=== PATIENT | male | born 1980 | race Caucasian/White ===

== ENCOUNTER 2024-05-13 08:28 | Emergency (ER) | payer MEDICARE, MEDICAID ==
[~2024-05-13] VITALS: Ht 175.3 cm; Wt 74.0 kg
[2024-05-13 08:31] VITALS: BP 129/93; PULSE 64; RESP 16; TEMP 97.6; O2SAT 98
[2024-05-13] MEDS ORDERED: IBUP-1985 PO (09:10)
== END 2024-05-13 18:42 | disposition home or self-care (01) ==
LOC: ER 08:29
DX: M25.532 Pain in left wrist (principal); Z76.0 Encounter for issue of repeat prescription; Z88.8 Allergy status to other drugs, medicaments and biological substances; Z88.5 Allergy status to narcotic agent; Z79.1 Long term (current) use of non-steroidal anti-inflammatories (NSAID); V87.8XXA Person injured in other specified noncollision transport accidents involving motor vehicle (traffic), initial encounter; Y93.55 Activity, bike riding; Y92.89 Other specified places as the place of occurrence of the external cause; Y99.8 Other external cause status
CPT/HCPCS: 99282

== ENCOUNTER 2024-05-26 01:48 | Emergency (ER) | payer MEDICARE, MEDICAID ==
[~2024-05-26] VITALS: Ht 175.3 cm; Wt 77.0 kg
[~2024-05-26 01:48] MED LIST: IBUP-1985 PO
[2024-05-26] MEDS: normal saline 1000ml 1,000 ML IV ONE (02:12)
[2024-05-26] MEDS: ondansetron/PF 4mg/2ml inj IV ONE (02:33)
[2024-05-26 02:38] LABS: BASOPHILS # (AUTO) 0.1 X10'3 (0-0.2); BASOPHILS % (AUTO) 0.4 % (0-1); EOSINOPHILS # (AUTO) 0.3 X10'3 (0-0.9); EOSINOPHILS % (AUTO) 2.5 % (0-6); HEMATOCRIT 48.8 % (42.0-52.0); HEMOGLOBIN 16.2 g/dl (14.0-17.9); LYMPHOCYTES # (AUTO) 1.9 X10'3 (1.1-4.8); MEAN CORPUSCULAR HEMOGLOBIN 31.2 PG (27.0-31.0); MEAN CORPUSCULAR HGB CONC 33.1 g/dL (33.0-36.5); MEAN CORPUSCULAR VOLUME 94.2 FL (78-98); MEAN PLATELET VOLUME 9.4 FL (7.4-10.4); MONOCYTES # (AUTO) 0.8 X10'3 (0-0.9); NEUTROPHILS # (AUTO) 9.7 X10'3 (1.8-7.7); NEUTROPHILS % (AUTO) 76.1 % (42-75); PLATELET COUNT 244 X10'3 (140-440); RED BLOOD COUNT 5.18 X10'6 (4.70-6.10); RED CELL DISTRIBUTION WIDTH 13.9 % (11.5-14.5); WHITE BLOOD COUNT 12.8 X10'3 (4.5-11.0)
[2024-05-26 02:45] LABS: ALANINE AMINOTRANSFERASE 42 U/L (12-78); ALBUMIN 3.6 G/DL (3.4-5.0); ALBUMIN/GLOBULIN RATIO 1.2 (1.1-1.5); ALKALINE PHOSPHATASE 83 IU/L (46-116); ANION GAP 8 (8-16); ASPARTATE AMINO TRANSFERASE 60 U/L (10-37); BILIRUBIN,TOTAL 1.6 MG/DL (0.1-1.0); BLOOD UREA NITROGEN 20 MG/DL (7-18); BUN/CREATININE RATIO 21.1 (10.0-20.0); CALCIUM 8.6 MG/DL (8.5-10.1); CHLORIDE 101 MMOL/L (99-107); CREATININE 0.95 MG/DL (0.60-1.10); ETHANOL 11 MG/DL (<10); GLUCOSE 107 MG/DL (70-104); POTASSIUM 3.8 MMOL/L (3.5-5.1); SODIUM 138 MMOL/L (135-145); TOTAL CARBON DIOXIDE 28.7 MMOL/L (24-32); TOTAL PROTEIN 6.6 G/DL (6.4-8.2); eCRCL 98 ML/MIN; eGFR 86 ML/MIN
[2024-05-26] MEDS: thiamine 100mg tablet PO STA (03:05)
[2024-05-26 08:14] LABS: URINE AMPHETAMINE SCREEN POSITIVE (Neg); URINE BARBITUATE SCREEN NEGATIVE (Neg); URINE BENZODIAZEPINES SCREEN NEGATIVE (Neg); URINE CANNABINOID SCREEN POSITIVE (Neg); URINE COCAINE SCREEN NEGATIVE (Neg); URINE METHADONE SCREEN NEGATIVE (Neg); URINE OPIATE SCREEN NEGATIVE (Neg); URINE PHENCYCLIDINE SCREEN NEGATIVE (Neg)
[2024-05-26 09:14] VITALS: BP 122/87; PULSE 68; TEMP 97.9; O2SAT 98
[2024-05-26 10:31] LABS: BILIRUBIN,URINE NEGATIVE (Neg); CLARITY,URINE CLEAR (Clear); COLOR,URINE YELLOW (Yellow); GLUCOSE, URINE NEGATIVE (Neg); KETONES,URINE TRACE mg/dl (Neg); LEUKOCYTE ESTERASE ,URINE NEGATIVE (Neg); NITRITES, URINE NEGATIVE (Neg); OCCULT BLOOD,URINE NEGATIVE (Neg); PH,URINE 6.5 (4.8-8.0); PROTEIN,URINE NEGATIVE (Neg); UA COLLECTION TYPE VOIDED
[2024-05-26] MEDS ORDERED: NO HOME MEDS (10:39)
[2024-05-26 10:40] VITALS: RESP 16
[2024-05-26 10:57] LABS: THYROID STIMULATING HORMONE 4.22 ulU/ml (0.34-4.50)
== END 2024-05-26 14:35 | disposition home or self-care (01) ==
LOC: ER 01:49
DX: F10.129 Alcohol abuse with intoxication, unspecified (principal); R45.850 Homicidal ideations; R11.10 Vomiting, unspecified; M54.2 Cervicalgia; Z88.8 Allergy status to other drugs, medicaments and biological substances; Z88.5 Allergy status to narcotic agent; Z20.822 Contact with and (suspected) exposure to COVID-19
CPT/HCPCS: 36415; 70450; 80053; 80305; 81003; 84443; 85025; 87811; 96361; 96374; 99285; G0480; J2405; J7030; 80320

== ENCOUNTER 2024-05-28 20:09 | Emergency (ER) | payer MEDICARE, MEDICAID ==
[~2024-05-28] VITALS: Ht 175.3 cm; Wt 78.2 kg
[~2024-05-28 20:09] MED LIST changes: -IBUP-1985 PO; +NO HOME MEDS
[2024-05-28 21:46] LABS: BASOPHILS % (AUTO) 0.7 % (0-1); EOSINOPHILS # (AUTO) 0.3 X10'3 (0-0.9); LYMPHOCYTES # (AUTO) 2.1 X10'3 (1.1-4.8); MONOCYTES # (AUTO) 0.5 X10'3 (0-0.9); NEUTROPHILS # (AUTO) 4.5 X10'3 (1.8-7.7); WHITE BLOOD COUNT 7.5 X10'3 (4.5-11.0)
[2024-05-28 21:49] LABS: EOSINOPHILS % (AUTO) 3.5 % (0-6); HEMATOCRIT 45.7 % (42.0-52.0); HEMOGLOBIN 15.6 g/dl (14.0-17.9); LYMPHOCYTES % (AUTO) 27.8 % (21-51); MEAN CORPUSCULAR HEMOGLOBIN 31.7 PG (27.0-31.0); MEAN CORPUSCULAR HGB CONC 34.1 g/dL (33.0-36.5); MEAN CORPUSCULAR VOLUME 92.9 FL (78-98); MEAN PLATELET VOLUME 9.2 FL (7.4-10.4); MONOCYTES % (AUTO) 7.3 % (2-12); NEUTROPHILS % (AUTO) 60.7 % (42-75); PLATELET COUNT 271 X10'3 (140-440); RED BLOOD COUNT 4.92 X10'6 (4.70-6.10); RED CELL DISTRIBUTION WIDTH 13.2 % (11.5-14.5)
[2024-05-28] MEDS ORDERED: METF-438 PO (22:00)
[2024-05-28] MEDS ORDERED: BUSP10TA3 PO (22:00)
[2024-05-28] MEDS ORDERED: GABAPENTIN (22:00)
[2024-05-28] MEDS ORDERED: GABA300T28 (22:00)
[2024-05-28] MEDS ORDERED: AMLO5TAB16 PO (22:00)
[2024-05-28] MEDS ORDERED: TRAZ-251 (22:00)
[2024-05-28] MEDS ORDERED: SERT-434 (22:00)
[2024-05-28] MEDS ORDERED: HYDR50CA5 (22:00)
[2024-05-28 22:04] LABS: ALANINE AMINOTRANSFERASE 31 U/L (12-78); ALBUMIN 3.6 G/DL (3.4-5.0); ALBUMIN/GLOBULIN RATIO 1.2 (1.1-1.5); ALKALINE PHOSPHATASE 80 IU/L (46-116); ANION GAP 6 (8-16); ASPARTATE AMINO TRANSFERASE 23 U/L (10-37); BLOOD UREA NITROGEN 14 MG/DL (7-18); BUN/CREATININE RATIO 15.7 (10.0-20.0); CALCIUM 8.6 MG/DL (8.5-10.1); CHLORIDE 105 MMOL/L (99-107); CREATININE 0.89 MG/DL (0.60-1.10); GLUCOSE 154 MG/DL (70-104); POTASSIUM 3.5 MMOL/L (3.5-5.1); SODIUM 139 MMOL/L (135-145); TOTAL CARBON DIOXIDE 28.2 MMOL/L (24-32); TOTAL PROTEIN 6.6 G/DL (6.4-8.2); eCRCL 105 ML/MIN; eGFR > 90 ML/MIN
[2024-05-28 22:12] LABS: ETHANOL < 10 MG/DL (<10); THYROID STIMULATING HORMONE 0.92 ulU/ml (0.34-4.50)
[2024-05-28 22:16] LABS: BILIRUBIN,URINE SMALL (Neg); CLARITY,URINE CLEAR (Clear); COLOR,URINE YELLOW (Yellow); GLUCOSE, URINE NEGATIVE (Neg); KETONES,URINE 15 mg/dl (Neg); LEUKOCYTE ESTERASE ,URINE NEGATIVE (Neg); NITRITES, URINE NEGATIVE (Neg); OCCULT BLOOD,URINE NEGATIVE (Neg); PROTEIN,URINE NEGATIVE (Neg); UROBILINOGEN,URINE 0.2 E.U/dL (0.2-1.0)
[2024-05-28 22:31] LABS: URINE AMPHETAMINE SCREEN POSITIVE (Neg); URINE BARBITUATE SCREEN NEGATIVE (Neg); URINE BENZODIAZEPINES SCREEN NEGATIVE (Neg); URINE CANNABINOID SCREEN POSITIVE (Neg); URINE COCAINE SCREEN NEGATIVE (Neg); URINE METHADONE SCREEN NEGATIVE (Neg); URINE OPIATE SCREEN NEGATIVE (Neg); URINE PHENCYCLIDINE SCREEN NEGATIVE (Neg)
[2024-05-28 22:37] LABS: UA COLLECTION TYPE CLN CATCH MIDSTREAM
[2024-05-29 06:01] VITALS: BP 132/82; PULSE 94; RESP 16; TEMP 98.6; O2SAT 98
[2024-05-29] MEDS: LORazepam 1 MG tablet PO ONE (07:42)
== END 2024-05-29 11:54 | disposition home or self-care (01) ==
LOC: ER 20:10
DX: F22 Delusional disorders (principal); Z20.822 Contact with and (suspected) exposure to COVID-19; Z73.6 Limitation of activities due to disability; Z88.5 Allergy status to narcotic agent; Z88.6 Allergy status to analgesic agent
CPT/HCPCS: 36415; 80053; 80305; 81003; 84443; 85025; 87811; 99284; G0480; 80320; 99283; 99285